=== PATIENT | female | born 1980 | race Caucasian/White ===

== ENCOUNTER 2016-12-03 22:48 | Emergency (ER) | payer OTHER ==
[2016-12-04 01:43] LABS: HEMOGLOBIN 10.8 gm/dl (12.3-15.3); RED BLOOD COUNT 4.33 M/UL (4.00-5.10); WHITE BLOOD COUNT 15.3 K/UL (4.5-11.0)
[2016-12-04 01:54] LABS: BUN/CREATININE RATIO 15 (0-10)
== END 2016-12-04 03:00 | disposition home or self-care (01) ==
LOC: ER1 22:48
PROVIDERS: Physician Assistant
DX: O99.89 Other specified diseases and conditions complicating pregnancy, childbirth and the puerperium (principal); R00.0 Tachycardia, unspecified; O23.43 Unspecified infection of urinary tract in pregnancy, third trimester; R00.2 Palpitations; R07.9 Chest pain, unspecified; Z3A.35 35 weeks gestation of pregnancy; R00.8 Other abnormalities of heart beat
CPT/HCPCS: 36415; 80053; 80307; 81001; 84439; 84443; 84484; 85025; 85379; 93005; 96360; 96361; 99284; G0463